=== PATIENT | female | born 1960 | race Caucasian/White ===

== ENCOUNTER 2017-01-17 19:16 | Emergency (ER) | payer OTHER ==
[2017-01-17 19:32] VITALS: TEMP 98
--- NOTE | 2017-01-17 19:35 | CPEKG ---
Heart Rate: 56 RR Interval: 1071 P-R Interval: 184 QRSD Interval: 92 QT Interval: 436 QTC Interval: 421 P [place]: 45 QRS [place]: -42 T Wave [place]: 51 EKG Severity - ABNORMAL ECG - EKG Impression: SINUS RHYTHM EKG Impression: LEFT ANTERIOR FASCICULAR BLOCK Electronically Signed By: Jordy Gagnon 17-Jan-2017 20:57:39
[2017-01-17 20:00] LABS: % IMMATURE GRANULYOCYTES 0.2 % (0.0-1.1); ABSOLUTE IMMATURE GRANULOCYTES 0.01 10^3/uL (0.00-0.10); ADD DIFF? NO; ADD MORPH? NO; ADD SCAN? NO; ATYPICAL LYMPHOCYTE FLAG 10 (0-99); FRAGMENT RBC FLAG 0 (0-99); HEMATOCRIT 39.5 % (38.0-47.0); HEMOGLOBIN 13.9 g/dL (12.6-16.3); LEFT SHIFT FLG 0 (0-99); LIPEMIA HEMOLYSIS FLAG 90 (0-99); MEAN CELL HEMOGLOBIN CONCENTR. 35.2 g/dL (32.4-36.7); MEAN CELL VOLUME 90.8 fL (81.5-99.8); MEAN PLATELET VOLUME 9.2 fL (8.7-11.7); PLATELET CLUMPS FLAG 10 (0-99); PLATELET COUNT 221 10^3/uL (150-400); RED BLOOD CELL COUNT 4.35 10^6/uL (4.18-5.33); RED CELL DISTRIBUTION WIDTH 12.9 % (11.5-15.2)
[2017-01-17 20:14] LABS: ANION GAP 19 mEq/L (8-16); CALCIUM 9.8 mg/dL (8.5-10.4); CARBON DIOXIDE 20 mEq/l (22-31); CHLORIDE 104 mEq/L (97-110); CREATININE 0.6 mg/dL (0.6-1.0); GLOMERULAR FILTRATION RATE > 60; GLUCOSE 104 mg/dL (70-100); POTASSIUM 3.4 mEq/L (3.5-5.2); SODIUM 143 mEq/L (134-144)
[2017-01-17 20:20] LABS: TROPONIN I < 0.012 ng/mL (0-0.034)
--- NOTE | 2017-01-17 20:36 | UCPHY ---
H & P Patient Type: Established Chief Complaint Nursing Narrative: c/o hives @ 6pm then CP ~ 1hr ago - currently no CP and hives going away Time Seen by Provider: 01/17/17 19:37 HPI/ROS: This patient complains of chest pain that resolved. She explains that she had a stressful day at work and was drinking beer-micro beer with some gusto and she developed belching with foam and then abrupt onset of 8/10 substernal pain the last for about 10 seconds. Thereafter she had mild pain the persist in the same area for 1 hour. Resolved upon arrival here. The pain did not radiate. She has not had that pain before. She reports that she had brief hives that was concurrent with the onset of her chest pain that has since resolved as well. She did not take any medications prior to arrival. She noted no other exacerbating or alleviating factors. She now feels well. ROS: No fatigue. No other constitutional symptoms. HEENT: No URI or other complaints. Pulmonary: No cough. No dyspnea. Cardiovascular: No heart palpitations or lightheadedness. No leg swelling. GI: No nausea or vomiting. No belly pain. Endocrine: No diaphoresis or other symptoms integumentary: No significant itching or other skin rash. 10 point ROS is otherwise negative. Source: Patient Exam Limitations: No limitations - Personal History Current Tetanus Diphtheria and Acellular Pertussis (TDAP): Yes - Medical/Surgical History PMH: Paroxysmal AFib. She had conversion to [facility] for is fibrillation approximately year ago was placed on Xarelto by our setter machine at the [facility]. She does not recall the setter machine's name. She also had a negative cardiac stress test in July of this past year. Other PMH: htn/ afib - Family History Significant Family History: No pertinent family hx, Other (No premature coronary artery disease. She did have a mother will with a bypass in her late 60s) - Social History Smoking Status: Never smoked Alcohol Use: Occasionally Drug Use: Marijuana Additional Social History: No cocaine - Physical Exam Exam: Vital signs are normal with exception of mild hypertension and mild bradycardia at 53 General Appearance: Alert, no distress. Eyes: Pupils equal and round no pallor or injection. ENT, Mouth: Mucous membranes moist. Respiratory: There are no retractions, lungs are clear to auscultation. Cardiovascular: Regular rate and rhythm. No murmur gallop or rub. No JVD. No leg swelling or tenderness. Gastrointestinal: Abdomen is soft and nontender, no masses, bowel sounds normal. Neurological: Alert with no focal deficits noted. Skin: Warm and dry, no rashes. Musculoskeletal: Neck is supple nontender. Extremities are symmetrical, full range of motion. Psychiatric: Mood and affect are normal. DIFFERENTIAL DIAGNOSIS: After history and physical exam differential diagnosis was considered for GERD with esophageal spasm, coronary syndrome, pulmonary embolism Constitutional: Initial Vital Signs Temperature (C) 36.6 C 01/17/17 19:30 Heart Rate 53 L 01/17/17 19:30 Respiratory Rate 18 01/17/17 19:30 Blood Pressure 150/96 H 01/17/17 19:30 O2 Sat (%) 97 01/17/17 19:30 O2 Delivery Mode Room Air Allergies/Adverse Reactions: diazepam [From Valium] Allergy (Verified 03/19/15 21:56) latex Allergy (Verified 03/19/15 21:56) Home Medications: Medication Instructions Recorded Metoprolol Tartrate [Lopressor 50 03/19/15 mg (*)] Aspirin 01/17/17 Pantoprazole Sodium [Protonix 40mg 40 mg PO DAILY #30 tab 01/17/17 (*)] Xarelto 01/17/17 Medical Decision Making - Diagnostics EKG Interpretation: 12 lead EKG performed shortly after arrival at 7:34 p.m. reveals sinus rhythm at 54 Indication chest pain Intervals: P R of 184, QRS of 92, QTC of 421 [place]: P of 45, QRS of-42, T of 51 Overall assessment sinus rhythm with left anterior fascicular block. No ST abnormalities. ED Course/Re-evaluation: The patient refused an IV but accepted phlebotomy She remained stable on the monitor. Patient remained symptom-free while here. She took her aspirin and Xarelto today. I counseled regarding GERD and esophageal spasm. Explain that we cannot entirely rule out potential cardiac diagnoses in 1 visit but have no concerning findings on workup here tonight. She understands the need to go the emergency department for any significant recurrent symptoms. She will follow up with her setter machine [facility] for a further outpatient workup I reviewed her labs. Explain it appears she has mild dehydration. Troponin is normal. No other remarkable findings. - Data Points Laboratory Results: Laboratory Results 01/17/17 19:55 01/17/17 19:55 01/17/17 01/17/17 19:55 19:55 WBC 4.86 10^3/uL 10^3/uL (3.80-9.50) RBC 4.35 10^6/uL 10^6/uL (4.18-5.33) Hgb 13.9 g/dL g/dL (12.6-16.3) Hct 39.5 % % (38.0-47.0) MCV 90.8 fL fL (81.5-99.8) MCH 32.0 pg pg (27.9-34.1) MCHC 35.2 g/dL g/dL (32.4-36.7) RDW 12.9 % % (11.5-15.2) Plt Count 221 10^3/uL 10^3/uL (150-400) MPV 9.2 fL fL (8.7-11.7) Neut % (Auto) 42.4 % % (39.3-74.2) Lymph % (Auto) 48.8 % H % (15.0-45.0) Brown % (Auto) 6.4 % % (4.5-13.0) Eos % (Auto) 1.6 % % (0.6-7.6) Baso % (Auto) 0.6 % % (0.3-1.7) Nucleat RBC Rel Count 0.0 % % (0.0-0.2) Absolute Neuts (auto) 2.06 10^3/uL 10^3/uL (1.70-6.50) Absolute Lymphs (auto) 2.37 10^3/uL 10^3/uL (1.00-3.00) Absolute Monos (auto) 0.31 10^3/uL 10^3/uL (0.30-0.80) Absolute Eos (auto) 0.08 10^3/uL 10^3/uL (0.03-0.40) Absolute Basos (auto) 0.03 10^3/uL 10^3/uL (0.02-0.10) Absolute Nucleated RBC 0.00 10^3/uL 10^3/uL (0-0.01) Immature Gran % 0.2 % % (0.0-1.1) Immature Gran # 0.01 10^3/uL 10^3/uL (0.00-0.10) Sodium 143 mEq/L mEq/L (134-144) Potassium 3.4 mEq/L L mEq/L (3.5-5.2) Chloride 104 mEq/L mEq/L (97-110) Carbon Dioxide 20 mEq/l L mEq/l (22-31) Anion Gap 19 mEq/L H mEq/L (8-16) BUN 9 mg/dL mg/dL (7-23) Creatinine 0.6 mg/dL mg/dL (0.6-1.0) Estimated GFR > 60 Glucose 104 mg/dL H mg/dL (70-100) Calcium 9.8 mg/dL mg/dL (8.5-10.4) Troponin I < 0.012 ng/mL ng/mL (0-0.034) Departure - Departure Disposition: Home, Routine, Self-Care Clinical Impression: Esophageal spasm GERD (gastroesophageal reflux disease) Qualifiers: Esophagitis presence: esophagitis presence not specified Qualified Code(s): K21.9 - Gastro-esophageal reflux disease without esophagitis Condition: Good Instructions: Diet for Stomach Ulcers and Gastritis (ED), Esophageal Spasm (ED) Additional Instructions: Diagnosis: Chest pain 2. GERD 3. Esophageal spasm You may have a food allergy to something in the beer that you drank. PLan: Protonix acid desiree for 10-14 days Maalox if you develop any recurrent symptoms. Wirt diet for the next 7-10 days Try a different beer, although it is griffiths to hold off on alcohol for the next week or so. Call Dr. Espinosa-setter machine arrange follow-up appointment for further evaluation Go to the emergency department for any significant recurrent symptoms despite the plan Referrals: Berna Tatum MD [Primary Care Provider] - As per Instructions Darnell Espinosa MD [Medical Doctor] - As per Instructions Prescriptions: Pantoprazole Sodium [Protonix 40mg (*)] 40 mg PO DAILY #30 tab - PQRS PQRS Measurement: NA
[2017-01-17 21:03] VITALS: BP 136/89; PULSE 80; RESP 16; O2SAT 96
== END 2017-01-17 21:03 | disposition home or self-care (01) ==
LOC: CED 19:16
DX: K22.4 Dyskinesia of esophagus (principal); K21.9 Gastro-esophageal reflux disease without esophagitis; I48.0 Paroxysmal atrial fibrillation; I10 Essential (primary) hypertension
CPT/HCPCS: 80048-PO; 84484-PO; 85025-PO; 93010-PO; 99215-PO; G0463-PO